=== PATIENT | male | born 1970 | race Two or more races ===

== ENCOUNTER 2020-08-03 05:14 | Inpatient (IN) | payer SELFPAY ==
[2020-08-03] VITALS (15 sets, daily range): BP systolic 106–158; BP diastolic 66–100
[~2020-08-03] VITALS: Ht 177.8 cm; Wt 86.2 kg
[~2020-08-03 05:14] MED LIST: ADVIL200 MG ORAL
[2020-08-03] MEDS ORDERED: Duramorph PF 5mg/10ml amp ONE (06:48)
[2020-08-03] MEDS ORDERED: fentaNYL 100 mcg/2 mL IV ONE (06:59)
[2020-08-03] MEDS ORDERED: Midazolam 2mg/2ml Inj ONE (06:59)
[2020-08-03] MEDS ORDERED: Lidocaine 1% MPF 10mg/ml 5ml ONE (07:06)
[2020-08-03] MEDS ORDERED: ALPRAZolam 0.5mg tab ORAL SCH (07:15)
--- NOTE | 2020-08-03 07:21 | Anethesia Preoperative Eval ---
Anesthesia Pre-op PMH/ROS General Date of Evaluation: Aug 03, 2020 Time of Evaluation: 07:19 Anesthesiologist: Anna ASA Score: ASA 2 Mallampati Score Class I : Soft palate, uvula, fauces, pillars visible Class II: Soft palate, uvula, fauces visible Class III: Soft palate, base of uvula visible Class IV: Only hard plate visible Mallampati Classification: Class II Surgeon: Francisca Diagnosis: R hip DJD Surgical Procedure: R hip arthroplasty Anesthesia History: none Social History: drug use - canabis Family History: no anesthesia problems Allergies: Coded Allergies: ACETAMINOPHEN (Verified Adverse Reaction, Unknown, NAUSEA/VOMITING, 08/02/20) HYDROCODONE (Verified Adverse Reaction, Unknown, NAUSEA/VOMITING, 08/02/20) Medications: see eMAR Patient NPO?: Yes Past Medical History Cardiovascular: Denies: HTN, CAD, DE, valve dz, arrhythmia, other Pulmonary: Denies: asthma, COPD, KIRK, other Gastrointestinal/Genitourinary: Reports: GERD - mild; Denies: CRI, ESRD, other Neurologic/Psychiatric: Reports: depression/anxiety; Denies: dementia, CVA, TIA, other Endocrine: Denies: DM, hypothyroidism, steroids, other HEENT: Denies: cataract (L), cataract (R), glaucoma, [place] (L), [place] (R), other Hematology/Immune: Denies: anemia, DVT, bleeding disorder, other Musculoskeletal/Integumentary: Reports: OA; Denies: RA, DJD, DDD, edema, other PMH Narrative: as above PSxH Narrative: none Anesthesia Pre-op Phys. Exam Physician Exam Last Vital Signs Date Time Temp Pulse Resp B/P (MAP) Pulse Ox O2 Delivery O2 Flow Rate FiO2 08/03/20 06:18 Room Air 08/03/20 06:17 98.0 77 20 138/88 (105) 100 Constitutional: NAD Neurologic: CN 2-12 intact Cardiovascular: RRR, no M/R/G Respiratory: CTA Gastrointestinal: S/NT/ND Airway Exam Mallampati Score: Class II MO: full Neck: flexible ROM: full Teeth: intact Dentures: no upper, no lower Anesthesia Pre-op A/P Labs see chart Studies Pre-op Studies: EKG - NSR Risk Assessment & Plan Assessment: ASA 2 Plan: SAB vs GA Status Change Before Surgery: No Pre-Antibiotics Drug: Ancef 2gr Given Within 1 Hr of Incision: Yes Time Given: 08:50 Gerry Castillo MD Aug 03, 2020 07:21
[2020-08-03] MEDS ORDERED: Bacitracin 50000 Units Vial ONE (07:24)
[2020-08-03] MEDS ORDERED: TRANEXAMIC ACID IVPB ONE (07:30)
--- NOTE | 2020-08-03 07:56 | Pre-Procedure Note/Attestation ---
Pre-Procedure Note/Attestation Complete Prior to Procedure Planned Procedure: right Procedure Narrative: right total hip Indications for Procedure Pre-Operative Diagnosis: right hip arthritis Attestation I attest that I discussed the nature of the procedure; its benefits; risks and complications; and alternatives (and the risks and benefits of such alternatives), prior to the procedure, with the patient (or the patient's legal instruments sales representative). I attest that, if there was a reasonable possibility of needing a blood transfusion, the patient (or the patient's legal instruments sales representative) was given the [facility] standardized written summary, pursuant to the Edison Gilberto Blood Safety Act ([place] Health and Safety Code # 1645, as amended). I attest that I re-evaluated the patient just prior to the surgery and that there has been no change in the patient's H&P, except as documented below: Gregorio Espinosa MD Aug 03, 2020 07:56
--- NOTE | 2020-08-03 07:57 | Brief Operative Note ---
Immediate Post Operative Note Operative Note Pre-op Diagnosis: right hip arthritis Procedure: right toital hip Post-op Diagnosis: right hip artrotis Post-op Diagnosis: same as pre-op Surgeon: ariela Anesthesia: regional Specimen: yes Complications: none Condition: stable Fluids: y Estimated Blood Loss: minimal Drains: none Implant(s) used?: Yes Gregorio Espinosa MD Aug 03, 2020 07:57
[2020-08-03] MEDS ORDERED: Sterile Water Irrig 1000ml IRRIG ONE (09:00)
[2020-08-03] MEDS ORDERED: NS Irrig 1000ml ONE (09:00)
[2020-08-03] MEDS ORDERED: Acetaminophen (Non formulary) 100 ML IV ONE (09:00)
[2020-08-03] MEDS ORDERED: Ketorolac 30mg Inj IV PRN (09:15)
[2020-08-03] MEDS ORDERED: Hydromorphone 0.5mg/0.5ml inj IVP PRN (09:15)
[2020-08-03] MEDS ORDERED: Midazolam 2mg/2ml Inj IVP PRN (09:15)
[2020-08-03] MEDS ORDERED: LR 1000ml 1,000 ML IVLG SCH (09:15)
[2020-08-03] MEDS ORDERED: DiphenhydrAMINE 50mg/ml Inj IVP PRN (09:15)
--- NOTE | 2020-08-03 10:27 | Immediate Post-Op Evaluation ---
Immediate Post-Op Evalulation Immediate Post-Op Evalulation Procedure: R total hip arthroplasty Date of Evaluation: Aug 03, 2020 Time of Evaluation: 10:26 IV Fluids: 1200 Blood Products: none Estimated Blood Loss: 150 Urinary Output: 100 Blood Pressure Systolic: 148 Blood Pressure Diastolic: 76 Pulse Rate: 82 Respiratory Rate: 20 O2 Sat by Pulse Oximetry: 99 Temperature (Fahrenheit): 97.8 Pain Score (1-10): 1 Nausea: No Vomiting: No Complications none Patient Status: reacts, patent, none Gerry Castillo MD Aug 03, 2020 10:27
--- NOTE | 2020-08-03 12:00 | NUR ---
NURSE NOTES: Pt came up to unit via hospital bed, drowsy but alert and in stable condition. Pt A&Ox4; VSS; on 2L NC; and in no apparent distress. Pt denies pain at this time. IV site intact/asymptomatic; abduction pillow in place; F/C patent/draining; and surgical dressing C/D/I. Will continue to monitor.
[2020-08-03] MEDS: D5 1/2NS w/KCl 20mEq 1,000 ML IV SCH (14:15)
--- NOTE | 2020-08-03 14:15 | Diagnostic Imaging Report ---
Indication: Hip pain Technique: Frontal and frog lateral view of the right hip Comparison: None Findings: Images demonstrate severe degenerative changes of the right hip with severe joint space narrowing with [id number] apposition, subchondral sclerosis and cystic change. No acute fracture identified. Symphysis pubis is maintained. Impression: Severe degenerative changes of the right hip.
--- NOTE | 2020-08-03 14:17 | Diagnostic Imaging Report ---
Indication: Hip pain Technique: Portable AP view of the pelvis Comparison: Right hip radiographs earlier the same day Findings: Interval right total hip arthroplasty. No appreciable periprosthetic fracture or additional complication. Note that sensitivity in evaluation for such is limited given obliquity on the projection. There is an indwelling Diaz catheter. Impression: Interval right total hip arthroplasty.
--- NOTE | 2020-08-03 14:23 | Diagnostic Imaging Report ---
Indication: Pain. Postop Technique: XRAY Pelvis 1v Comparison: Earlier the same day Findings: Patient is status post right total hip arthroplasty. Gas within the soft tissues and joint compatible with postoperative acquisition of the radiograph. No periprosthetic fracture appreciated. There is an indwelling Diaz catheter. Impression: Status post right total hip arthroplasty.
--- NOTE | 2020-08-03 17:12 | NUR ---
CASE MANAGEMENT:INITIAL REVIEW 50 YR OLD MALE FROM HOME FOR PLANNED SURGERY CC;RT HIP ARTHRITIS SI;RT TOTAL HIP ARTHROPLASTY 98.0 77 20 158/100 100% ON RA RAPID COVID ~ NEGATIVE RT HIP XRAY ~ Severe degenerative changes of the right hip. RT HIP/PELVIS XRAY ~ Status post right total hip arthroplasty. PELVIS XRAY ~ Interval right total hip arthroplasty IS;XANAX PO ANCEF IV TORADOL IV BENADRYL IV IVF S5W @ 75 ML/HR ADMITTED TO MED SURG FOR POST OP CARE MED SURG STATUS DCP;FROM HOME
[2020-08-03] MEDS: CEFAZOLIN 2 GM/50 ML IV SCH (18:02)
--- NOTE | 2020-08-03 18:33 | Cardiology Progress Note ---
Assessment/Plan Assessment/Plan [id number] Objective Last 24 Hour Vital Signs Date Time Temp Pulse Resp B/P (MAP) Pulse Ox O2 Delivery O2 Flow Rate FiO2 08/03/20 16:00 98.4 67 16 111/69 (83) 99 08/03/20 14:30 98.1 65 16 108/69 (82) 98 08/03/20 13:30 98.4 71 16 106/66 (79) 100 08/03/20 12:30 98.4 77 16 125/77 (93) 99 08/03/20 12:00 98.8 69 16 131/78 (95) 97 08/03/20 11:30 97.8 71 15 133/78 100 Nasal Cannula 3 08/03/20 11:15 70 16 139/76 100 Nasal Cannula 3 08/03/20 11:00 74 17 144/82 100 Nasal Cannula 3 08/03/20 10:45 74 16 150/79 98 Nasal Cannula 3 08/03/20 10:30 74 17 148/88 100 Simple Mask 6 08/03/20 10:27 82 20 99 08/03/20 10:25 71 16 158/100 100 Simple Mask 6 08/03/20 10:19 97.5 76 20 132/76 100 Simple Mask 6 08/03/20 06:18 Room Air 08/03/20 06:17 98.0 77 20 138/88 (105) 100 Intake and Output 08/02/20 08/03/20 19:00 07:00 # Voids 1 Microbiology Date/Time Source Procedure Growth Status 08/03/20 06:00 Nasopharynx SARS-CoV-2 RdRp Gene Assay - Final Complete Alessandro Ulloa MD Aug 03, 2020 18:33
--- NOTE | 2020-08-03 19:30 | Consultation ---
DATE OF CONSULTATION: 08/03/2020 CARDIOLOGY CONSULTATION CONSULTING PHYSICIAN: Alessandro Ulloa MD REFERRING PHYSICIAN: Gregorio Espinosa MD REASON FOR EVALUATION: Postoperative medical care. HISTORY OF PRESENT ILLNESS: This is a middle-aged gentleman who has a history of hip problems and was admitted and underwent total hip replacement by Dr. Gregorio Luna and he asked me to see the patient in postoperative medical care. On detailed questioning, the patient denies any chest pain or shortness of breath. No PND. No orthopnea. No palpitation. No sore throat. PAST MEDICAL HISTORY: Positive for right hip osteoarthritis. PAST SURGICAL HISTORY: No prior surgical issues. FAMILY HISTORY: Mother with arrhythmias, thyroid disease, breast cancer in remission. Father at age 60 due to heatstroke, cancer, myocardial infarction, coronary bypass graft at age 55, and abdominal aortic aneurysm. Siblings - thyroid, depression, prediabetes, gallstones, hypertension, and depression. SOCIAL HISTORY: , 1 child. Nonsmoker. No alcoholic beverages. Positive marijuana use. He is a host. REVIEW OF SYSTEMS: GASTROINTESTINAL: Denies any nausea or vomiting. Does not really have appetite. GENITOURINARY: Denies any burning on urination. PULMONARY: Denies any sore throat, coughing, or wheezing. CONSTITUTIONAL: No chills or fevers. PHYSICAL EXAMINATION: GENERAL: Shows to be middle-aged gentleman, in no respiratory distress. He is lying down approximately 20 degrees head of bed elevation. NECK: Supple. No jugular venous distention. LUNGS: Clear to auscultation, percussion. CARDIAC: S1 is normal. S2 is normal. Regular rate and rhythm. ABDOMEN: Soft, nontender. Positive bowel sounds. EXTREMITIES: No edema. Pneumatic compression stockings in place. LABORATORY VALUES: SARS COVID test was negative. Preoperative urinalysis was unremarkable. Blood sugar was 90 with sodium 140, potassium 3.6, , bicarb 26, BUN of 12.5, and creatinine 0.9, and glucose of 90. His white count 7.6, hemoglobin 15, and platelet count 301. His INR and PTT within normal limits. His preop EKG showed actually sinus bradycardia, normal QRS axis, really no significant ST or T-wave abnormalities. ASSESSMENT AND PLAN: Osteoarthritis of the hip, now status post total knee replacement. This patient was seen in medical consultation. The patient is doing well postoperatively. His vital signs today have been between 108/69 to 131/78, temperature 98.4, heart rates in the 60s to 70s range. He is doing well on postoperative pain medication, antiemetics, pneumatic compression stockings, DVT prophylaxis. Ambulation when allowed by Dr. Luna. Pain Management consultation as becomes necessary. DVT prophylaxis with the use of pneumatic compression stockings and low-molecular weight heparin has been initiated and the patient is having some IV fluids administered. His p.o. intake has been at this time relatively low, but I suspect by tomorrow morning he may gain more appetite. Alessandro Ulloa M.D. DR: JANI JOB#: [id number] CC:
--- NOTE | 2020-08-03 19:30 | NUR ---
NURSE HAND-OFF: Important Events on Shift:Pt came up to unit in stable condition; has no c/o pain; does not have much of an appetite since arriving to unit. Patient Status: Stable Diet: Regular Pending Orders: None Pending Results/Labs:None Pending MD notification: None Latest Vital Signs: Temperature 98.4 , Pulse 67 , B/P 111 /69 , Respiratory Rate 16 , O2 SAT 99 , Room Air. Vital Sign Comment: Stable Latest Weller Fall Score: 55 Fall Risk: High Risk Safety Measures: Call light , Bed Alarm , Side Rails Side Rails x1, Bed position . Fall Precautions: Report given to AMINTA No.
--- NOTE | 2020-08-03 19:32 | NUR ---
NURSE NOTES: Received report & pt from Tanya, NR. Pt in bed, a&ox4, in room air. No s/s of acute distress & no c/o pain at this time. Diaz intact & draining to gravity. Surgical dressing C/D/I with ice pack on & reinforced with AM nurse. Abduction pillow on. IV site intact with IVF running as ordered. Plan of care discussed.
--- NOTE | 2020-08-03 21:30 | NUR ---
NURSE NOTES: Pt had clear emesis 240 ml. Per pt, he feels a lot better now. Left msg to Dr. Ulloa for a PRN order for nausea/vomiting. Will f/u
[2020-08-04] MEDS: CEFAZOLIN 2 GM/50 ML IV SCH (00:01)
--- NOTE | 2020-08-04 01:10 | NUR ---
NURSE NOTES: Pt asleep. In no acute distress. Breathing unlabored.
[2020-08-04] MEDS: D5 1/2NS w/KCl 20mEq 1,000 ML IV SCH (02:03)
[2020-08-04 04:36] VITALS: BP 118/66
[2020-08-04 06:48] LABS: BASOPHILS % (AUTO) 0.3 % (0.0-2.0); EOSINOPHILS % (AUTO) 0.3 % (0.0-3.0); HEMATOCRIT 36.9 % (42.0-52.0); HEMOGLOBIN 12.5 G/DL (14.2-18.0); LYMPHOCYTES % (AUTO) 24.9 % (20.0-45.0); MEAN CORPUSCULAR VOLUME 95 FL (80-99); MONOCYTES % (AUTO) 9.8 % (1.0-10.0); NEUTROPHILS % (AUTO) 64.7 % (45.0-75.0); PLATELET COUNT 205 K/UL (150-450); RED BLOOD COUNT 3.89 M/UL (4.70-6.10); RED CELL DISTRIBUTION WIDTH 12.4 % (11.6-14.8); WHITE BLOOD COUNT 8.8 K/UL (4.8-10.8)
--- NOTE | 2020-08-04 06:54 | NUR ---
NURSE HAND-OFF: Important Events on Shift: clear emesis 240 ml; no pain Patient Status: stable Diet: Regular Pending Orders: none Pending Results/Labs:none Pending MD notification:none Latest Vital Signs: Temperature 98.6 , Pulse 73 , B/P 118 /66 , Respiratory Rate 17 , O2 SAT 96 , Room Air, O2 Flow Rate 2.0 . Vital Sign Comment: none Latest Weller Fall Score: 55 Fall Risk: High Risk Safety Measures: Call light Within Reach, Bed Alarm , Side Rails Side Rails x2, Bed position Low and Locked. Fall Precautions: Patient Fall Education Report given to . Addendum: 08/04/20 at 0723 by Marybel Padilla RN Report given to AMINTA Nova.
[2020-08-04 07:05] LABS: ANION GAP 7 mmol/L (5-15); BLOOD UREA NITROGEN 16 mg/dL (7-18); CALCIUM 7.8 MG/DL (8.5-10.1); CARBON DIOXIDE 28 MMOL/L (21-32); CHLORIDE 105 MMOL/L (98-107); POTASSIUM 3.8 MMOL/L (3.5-5.1); SODIUM 140 MMOL/L (136-145)
--- NOTE | 2020-08-04 07:23 | NUR ---
NURSE NOTES: Patient is in bed asleep. Stable. Breathing is even and unlabored. No visible signs of distress noted at this time. IVF running as ordered. All safety measures provided. Patient is in bed in locked and lowest position with call light within reach. Will continue to monitor.
[2020-08-04 08:00] VITALS: BP 118/70
--- NOTE | 2020-08-04 08:07 | 48 Hour Post Anesthesia Eval ---
Post Anesthesia Evaluation Procedure: R total hip arthroplasty Date of Evaluation: Aug 04, 2020 Time of Evaluation: 08:05 Blood Pressure Systolic: 118 0: 76 Pulse Rate: 68 Respiratory Rate: 18 Temperature (Fahrenheit): 97.6 O2 Sat by Pulse Oximetry: 98 Airway: patent Nausea: No Vomiting: No Pain Intensity: 3 Hydration Status: adequate Cardiopulmonary Status: stable Mental Status/LOC: patient returned to baseline Follow-up Care/Observations: n/a Post-Anesthesia Complications: none Follow-up care needed: N/A Gerry Castillo MD Aug 04, 2020 08:07
[2020-08-04] MEDS: Morphine Sulfate 2mg/ml Inj(IV/IM USE ONLY) IVP PRN ×4 (09:10→22:39)
[2020-08-04] MEDS: Enoxaparin 40mg Inj SUBQ SCH (09:14)
--- NOTE | 2020-08-04 09:55 | NUR ---
PT EVALUATION NOTE Patient seen for initial evaluation. Patient presents with generalized weakness and impaired functional mobility s/p R TORY. Patient instructed in THR precautions. Patient required mod assist for bed mobility and min assist for transfers with FWW. Patient able to take several small sideways steps with FWW and min assist. Gait training deferred due to c/o nausea. Patient will benefit from skilled inpatient PT intervention to increase RLE strength and postural stability for improved balance and functional mobility, and to insure compliance with THR precautions. Patient lives alone however states that he will have assistance at home. Recommend discharge home with home PT and assistance vs short term SNF for rehab depending on patient's progress. Patient has FWW and bedside commode. Addendum: 08/04/20 at 1259 by KEVIN FRYE PT Amended: Links added.
[2020-08-04 11:52] VITALS: BP 140/74
--- NOTE | 2020-08-04 13:47 | NUR ---
CASE MANAGEMENT:REVIEW SI;POD #1 RT HIP ARTHROPLASTY 99.2 77 18 140/74 93% ON RA BG 109 CA 7.8 IS;LOVENOX SUBQ QD CEFAZOLIN IV Q8 MORPHINE IV Q2 PRN IVF D5W @ 75 ML/HR MED SURG STATUS DCP;FROM HOME
--- NOTE | 2020-08-04 15:30 | Operative Note - Dictated ---
DATE OF OPERATION: 08/03/2020 PREOPERATIVE DIAGNOSIS: Right hip end-stage osteoarthritis. POSTOPERATIVE DIAGNOSIS: Right hip end-stage osteoarthritis. PROCEDURE: Right total hip replacement with a Sohan #3 lateral offset stem, a +7 mm ceramic head, a 56 mm cup with a vitamin E liner. SURGEON: Gregorio Espinosa M.D. MEDICAL CENTER DIRECTOR: Gerry Castillo M.D. PREOPERATIVE NOTE: This is a pleasant gentleman who has been having issues with his hip associated with increasing pain. He has end-stage changes on his x-rays. I explained to him the surgery and risks being infection, bleeding, anesthetic risks, nerve or vessel damage, failure of the surgery, DVT, PE, and morbidity and mortality from the above, not including the above. The patient agreed and consents were obtained. OR NOTE: Under the benefit of endotracheal intubation, general anesthetic, and spinal anesthetic, the patient was given tranexamic acid. The patient was given appropriate embolism cuffs in order to prevent DVT. The patient was placed in the lateral position. At this point, the patient was given 2 g of Ancef. We then did a posterolateral incision after prepping and draping the hip. I incised through subcu tissue down to TFL. The incision was approximately 4-5 inches. I then proceeded to the short external rotators, identifying the sciatic nerve pre and post approach, it was intact. I then proceeded to remove the capsule. I dislocated the hip. There were indeed end-stage changes within the labrum. I used a saw to saw the hip head. I then proceeded to starting the acetabulum. I started with the 44, progressing up to 55. I accepted a 56 cup. I bent 56 cup into proper lateral inclination, proper anteversion. I then placed in a liner. I then moved onto the femoral side, reaming down the femur starting with the 0, 1, 2, and 3, accepting a 3 lateral offset stem after sizing multiple times to adjust the leg lengths and stability. . I accepted a 3 lateral offset with a +7 head leading to perfect leg lengths, appeared to be equal on the table and also on x-ray. I irrigated the wound copiously. I closed the short external rotator remnants and TFL with 1 Vicryl, subcu tissue with 2-0 Vicryl, skin with amelia. The patient went to recovery room in stable condition, neurovascularly intact. No complications. Bal Marysol Espinosa DR: Fartun JOB#: [id number] CC: CIRILO
--- NOTE | 2020-08-04 15:49 | NUR ---
NURSE NOTES: Patient tolerated PO fluids, IVF d/c as ordered.
[2020-08-04 16:00] VITALS: BP 155/88
[2020-08-04] MEDS ORDERED: Tubing IV Secondary IV ONE (16:35)
--- NOTE | 2020-08-04 18:30 | Cardiology Progress Note ---
Assessment/Plan Assessment/Plan Osteoarthritis of the hip, now status post total knee replacement per rn had bleeding earlier today he would nto allow me to turn the light on for me to check hsi wound follow cbc hgb sveta ok now dvt ppx with lmwh Subjective Cardiovascular: Denies: chest pain, lightheadedness, palpitations Respiratory: Denies: shortness of breath Gastrointestinal/Abdominal: Denies: abdominal pain Genitourinary: Denies: burning Objective Last 24 Hour Vital Signs Date Time Temp Pulse Resp B/P (MAP) Pulse Ox O2 Delivery O2 Flow Rate FiO2 08/04/20 16:00 99.0 70 19 155/88 (110) 97 08/04/20 11:52 99.2 74 18 140/74 (96) 97 08/04/20 09:00 Room Air 08/04/20 08:07 68 18 98 08/04/20 08:00 98.7 67 16 118/70 (86) 98 08/04/20 04:36 98.6 73 17 118/66 (83) 96 08/03/20 23:31 99.0 77 16 117/67 (84) 93 08/03/20 20:41 Room Air 08/03/20 20:00 98.0 66 16 114/70 (85) 98 General Appearance: other - would not allow me to turn on the light wanter to be left alone to sleep more Respiratory/Chest: lungs clear - ant Abdomen: non tender, soft Extremities: no swelling Intake and Output 08/03/20 08/04/20 19:00 07:00 Intake Total 340 ml 1480 ml Output Total 350 ml 590 ml Balance -10 ml 890 ml Intake Oral 240 ml 580 ml IV Total 100 ml 900 ml Output Urine Total 300 ml 350 ml Emesis 240 ml Estimated Blood Loss 50 ml Laboratory Tests Test 08/04/20 05:05 White Blood Count 8.8 K/UL (4.8-10.8) Red Blood Count 3.89 M/UL (4.70-6.10) L Hemoglobin 12.5 G/DL (14.2-18.0) L Hematocrit 36.9 % (42.0-52.0) L Mean Corpuscular Volume 95 FL (80-99) Mean Corpuscular Hemoglobin 32.2 PG (27.0-31.0) H Mean Corpuscular Hemoglobin Concent 33.9 G/DL (32.0-36.0) Red Cell Distribution Width 12.4 % (11.6-14.8) Platelet Count 205 K/UL (150-450) Mean Platelet Volume 6.4 FL (6.5-10.1) L Neutrophils (%) (Auto) 64.7 % (45.0-75.0) Lymphocytes (%) (Auto) 24.9 % (20.0-45.0) Monocytes (%) (Auto) 9.8 % (1.0-10.0) Eosinophils (%) (Auto) 0.3 % (0.0-3.0) Basophils (%) (Auto) 0.3 % (0.0-2.0) Prothrombin Time 11.4 SEC (9.30-11.50) Prothromb Time International Ratio 1.0 (0.9-1.1) Activated Partial Thromboplast Time 26 SEC (23-33) Sodium Level 140 MMOL/L (136-145) Potassium Level 3.8 MMOL/L (3.5-5.1) Chloride Level 105 MMOL/L (98-107) Carbon Dioxide Level 28 MMOL/L (21-32) Anion Gap 7 mmol/L (5-15) Blood Urea Nitrogen 16 mg/dL (7-18) Creatinine 1.0 MG/DL (0.55-1.30) Estimat Glomerular Filtration Rate > 60 mL/min (>60) Glucose Level 109 MG/DL (74-106) H Calcium Level 7.8 MG/DL (8.5-10.1) L Microbiology Date/Time Source Procedure Growth Status 08/03/20 06:00 Nasopharynx SARS-CoV-2 RdRp Gene Assay - Final Complete Alessandro Ulloa MD Aug 04, 2020 18:30
--- NOTE | 2020-08-04 19:15 | NUR ---
NURSE HAND-OFF: Important Events on Shift:pain management, reposition Patient Status: stable Diet: regular Pending Orders: n/a Pending Results/Labs:n/a Pending MD notification:n/a Latest Vital Signs: Temperature 99.0 , Pulse 70 , B/P 155 /88 , Respiratory Rate 19 , O2 SAT 97 , Room Air, O2 Flow Rate 2.0 . Vital Sign Comment: n/a Latest Weller Fall Score: 60 Fall Risk: High Risk Safety Measures: Call light Within Reach, Bed Alarm , Side Rails Side Rails x2, Bed position Low and Locked. Fall Precautions: Patient Fall Education Report given to Marybel LEMOS.
--- NOTE | 2020-08-04 19:30 | NUR ---
NURSE NOTES: Received report & pt from AMINTA Nova. Pt in bed, a&ox4, in room air. No s/s of acute distress & no c/o pain at this time. Diaz intact & draining to gravity. Surgical dressing C/D/I with ice pack on. Abduction pillow on. IV site intact & S/L'd. Plan of care discussed.
[2020-08-04 20:00] VITALS: BP 139/80
--- NOTE | 2020-08-04 23:54 | NUR ---
NURSE NOTES: In no acute distress. Ice chips provided per pt's request.
[2020-08-05 00:10] VITALS: BP 154/89
[2020-08-05] MEDS ORDERED: Zolpidem 5mg tab ORAL PRN (04:00)
[2020-08-05 04:22] VITALS: BP 156/88
[2020-08-05] MEDS: Morphine Sulfate 2mg/ml Inj(IV/IM USE ONLY) IVP PRN ×2 (04:41→12:10)
--- NOTE | 2020-08-05 06:26 | NUR ---
NURSE HAND-OFF: Important Events on Shift:pain management, new order for sleeping pill Patient Status: stable Diet: regular Pending Orders: none Pending Results/Labs:none Pending MD notification:none Latest Vital Signs: Temperature 98.7 , Pulse 68 , B/P 156 /88 , Respiratory Rate 18 , O2 SAT 95 , Room Air, O2 Flow Rate 2.0 . Vital Sign Comment: none Latest Weller Fall Score: 60 Fall Risk: High Risk Safety Measures: Call light Within Reach, Bed Alarm , Side Rails Side Rails x2, Bed position Low and Locked. Fall Precautions: Patient Fall Education Report given to . Addendum: 08/05/20 at 0710 by Marybel Padilla RN Report given to AMINTA Horne.
[2020-08-05 06:55] LABS: BASOPHILS % (AUTO) 0.6 % (0.0-2.0); EOSINOPHILS % (AUTO) 0.1 % (0.0-3.0); HEMATOCRIT 37.5 % (42.0-52.0); HEMOGLOBIN 13.3 G/DL (14.2-18.0); MEAN CORPUSCULAR VOLUME 93 FL (80-99); MONOCYTES % (AUTO) 10.6 % (1.0-10.0); NEUTROPHILS % (AUTO) 71.7 % (45.0-75.0); PLATELET COUNT 215 K/UL (150-450); RED BLOOD COUNT 4.04 M/UL (4.70-6.10); RED CELL DISTRIBUTION WIDTH 11.6 % (11.6-14.8)
--- NOTE | 2020-08-05 07:10 | NUR ---
NURSE NOTES: Handoff received from Marybel LEMOS. Patient is awake and alert, no signs of distress noted, eating breakfast. Right hip visualized, dressing is clean and dry. Right hand IV intact and patent. No reports of pain or discomfort. bed is low and locked, side rails up x2, call light is within reach.
[2020-08-05 07:24] LABS: ANION GAP 9 mmol/L (5-15); BLOOD UREA NITROGEN 9 mg/dL (7-18); CALCIUM 8.1 MG/DL (8.5-10.1); CARBON DIOXIDE 26 MMOL/L (21-32); CHLORIDE 101 MMOL/L (98-107); POTASSIUM 3.7 MMOL/L (3.5-5.1); SODIUM 136 MMOL/L (136-145)
[2020-08-05 08:00] VITALS: BP 143/88
--- NOTE | 2020-08-05 08:12 | General Progress Note ---
Progress Note Progress Note doing well Xrays good Neurovascular intact Leg length equal tight flexors and adductors as was 2 cm short now equal incision clear plan iv toradol advise strtech flexors and adductors reassured client physio today reasses Gregorio Hernandez MD Aug 05, 2020 08:12
[2020-08-05] MEDS ORDERED: Ketorolac 30mg Inj IV SCH (08:15)
[2020-08-05] MEDS: Enoxaparin 40mg Inj SUBQ SCH (08:16)
[2020-08-05 12:00] VITALS: BP 166/91
--- NOTE | 2020-08-05 12:23 | NUR ---
NURSE NOTES: Diaz catheter d/c per Md order.
[2020-08-05 16:00] VITALS: BP 139/93
--- NOTE | 2020-08-05 16:32 | NUR ---
CASE MANAGEMENT: REVIEW 08/05/2020 SI:RIGHT HIP OA. VS: T 98.1 HR 95 RR 18 B/P 166/91 SATS 97% ON RA LABS: WBC 11 GLU 121 CA 8.1 IS:LOVENOX SUBQ QD MED/SURG PLAN OF CARE: CONTINUE PT
--- NOTE | 2020-08-05 16:40 | NUR ---
CASE MANAGEMENT: NOTE SURGICAL CLEARANCE REQUESTED
--- NOTE | 2020-08-05 18:05 | Cardiology Progress Note ---
Assessment/Plan Assessment/Plan Osteoarthritis of the hip, now status post total knee replacement in much better spirits todayu no pvr on bladder scan dvt ppx with [facility] looks good hope ehll iell be able to go hometomorrow Subjective Cardiovascular: Denies: chest pain, lightheadedness, palpitations Gastrointestinal/Abdominal: Denies: abdominal pain Genitourinary: Denies: burning Subjective sat up for 1 hour walkied inhall ate , but nto been able to urinte ye post engel removal and no bm yet but has had flatus Objective Last 24 Hour Vital Signs Date Time Temp Pulse Resp B/P (MAP) Pulse Ox O2 Delivery O2 Flow Rate FiO2 08/05/20 12:40 98.7 08/05/20 12:00 98.1 95 18 166/91 (116) 97 08/05/20 09:37 98.7 08/05/20 09:00 Room Air 08/05/20 08:00 99.0 82 20 143/88 (106) 96 08/05/20 04:22 98.7 68 18 156/88 (110) 95 08/05/20 00:10 99.4 69 18 154/89 (110) 97 08/04/20 22:19 Room Air 08/04/20 20:00 99.3 84 18 139/80 (99) 95 General Appearance: no apparent distress, alert Neck: supple Cardiovascular: normal rate Respiratory/Chest: lungs clear Abdomen: normal bowel sounds, non tender, soft Extremities: no swelling Intake and Output 08/04/20 08/05/20 19:00 07:00 Intake Total 720 ml Output Total 900 ml 1300 ml Balance -900 ml -580 ml Intake Oral 720 ml Output Urine Total 900 ml 1300 ml Laboratory Tests Test 08/05/20 04:55 White Blood Count 11.0 K/UL (4.8-10.8) H Red Blood Count 4.04 M/UL (4.70-6.10) L Hemoglobin 13.3 G/DL (14.2-18.0) L Hematocrit 37.5 % (42.0-52.0) L Mean Corpuscular Volume 93 FL (80-99) Mean Corpuscular Hemoglobin 32.9 PG (27.0-31.0) H Mean Corpuscular Hemoglobin Concent 35.5 G/DL (32.0-36.0) Red Cell Distribution Width 11.6 % (11.6-14.8) Platelet Count 215 K/UL (150-450) Mean Platelet Volume 6.7 FL (6.5-10.1) Neutrophils (%) (Auto) 71.7 % (45.0-75.0) Lymphocytes (%) (Auto) 17.0 % (20.0-45.0) L Monocytes (%) (Auto) 10.6 % (1.0-10.0) H Eosinophils (%) (Auto) 0.1 % (0.0-3.0) Basophils (%) (Auto) 0.6 % (0.0-2.0) Sodium Level 136 MMOL/L (136-145) Potassium Level 3.7 MMOL/L (3.5-5.1) Chloride Level 101 MMOL/L (98-107) Carbon Dioxide Level 26 MMOL/L (21-32) Anion Gap 9 mmol/L (5-15) Blood Urea Nitrogen 9 mg/dL (7-18) Creatinine 1.0 MG/DL (0.55-1.30) Estimat Glomerular Filtration Rate > 60 mL/min (>60) Glucose Level 121 MG/DL (74-106) H Calcium Level 8.1 MG/DL (8.5-10.1) L Microbiology Date/Time Source Procedure Growth Status 08/03/20 06:35 Nasal Nares MRSA Culture - Final NO METHICILLIN RESISTANT STAPH AUREUS... Complete 08/03/20 06:00 Nasopharynx SARS-CoV-2 RdRp Gene Assay - Final Complete Alessandro Ulloa MD Aug 05, 2020 18:05
--- NOTE | 2020-08-05 19:20 | NUR ---
NURSE HAND-OFF: Important Events on Shift:[voiding after dc engel catheter] Patient Status: stable Diet: regular Pending Orders: Pending Results/Labs: Pending MD notification: Latest Vital Signs: Temperature 99.0 , Pulse 85 , B/P 139 /93 , Respiratory Rate 18 , O2 SAT 99 , Room Air, O2 Flow Rate 2.0 . Vital Sign Comment: stable Latest Weller Fall Score: 60 Fall Risk: High Risk Safety Measures: Call light Within Reach, Bed Alarm , Side Rails Side Rails x2, Bed position Low and Locked. Fall Precautions: Patient Fall Education Report given to
--- NOTE | 2020-08-05 19:48 | NUR ---
NURSE NOTES: Received report from Ozize LEMOS. Patient seen in bed, sitting and in no apparent distress. Denies any pain as of the moment.
[2020-08-06] VITALS (7 sets, daily range): BP systolic 125–157; BP diastolic 68–91
[2020-08-06] MEDS: Morphine Sulfate 2mg/ml Inj(IV/IM USE ONLY) IVP PRN (00:52)
--- NOTE | 2020-08-06 06:30 | NUR ---
NURSE HAND-OFF: Important Events on Shift: Pain management throughout the night. Patient mentions that he has a raised toilet seat, a bedside commode, at home. Patient was up and about last night, he was able to void okay. Encouraged more fluid intake Patient Status: stable Diet: reg Pending Orders: [] Pending Results/Labs:[] Pending MD notification:[] Latest Vital Signs: Temperature 98.4 , Pulse 79 , B/P 134 /91 , Respiratory Rate 18 , O2 SAT 97 , Room Air, O2 Flow Rate 2.0 . Vital Sign Comment: [] Latest Weller Fall Score: 60 Fall Risk: High Risk Safety Measures: Call light Within Reach, Bed Alarm , Side Rails Side Rails x2, Bed position Low and Locked. Fall Precautions: Patient Fall Education Report given to Alvarez LEMOS .
[2020-08-06 06:31] LABS: BASOPHILS % (AUTO) 0.7 % (0.0-2.0); EOSINOPHILS % (AUTO) 0.4 % (0.0-3.0); HEMOGLOBIN 12.7 G/DL (14.2-18.0); LYMPHOCYTES % (AUTO) 30.9 % (20.0-45.0); MEAN CORPUSCULAR VOLUME 92 FL (80-99); MONOCYTES % (AUTO) 11.7 % (1.0-10.0); NEUTROPHILS % (AUTO) 56.3 % (45.0-75.0); PLATELET COUNT 221 K/UL (150-450); RED BLOOD COUNT 3.91 M/UL (4.70-6.10); WHITE BLOOD COUNT 8.3 K/UL (4.8-10.8)
[2020-08-06 06:56] LABS: ANION GAP 8 mmol/L (5-15); BLOOD UREA NITROGEN 15 mg/dL (7-18); CALCIUM 8.1 MG/DL (8.5-10.1); CARBON DIOXIDE 27 MMOL/L (21-32); CHLORIDE 100 MMOL/L (98-107); POTASSIUM 3.7 MMOL/L (3.5-5.1); SODIUM 135 MMOL/L (136-145)
--- NOTE | 2020-08-06 07:45 | NUR ---
NURSE NOTES: Received report from AMINTA Hanks. Pt awake in bed in RA, alert and oriented. No acute distress noted. Denied any pain at this time. Surgical wound dressing C/D/I. IV intact and patent. Bed in low position and locked. Call light within reach. Will continue to monitor.
[2020-08-06] MEDS: Enoxaparin 40mg Inj SUBQ SCH (09:21)
--- NOTE | 2020-08-06 12:42 | Cardiology Progress Note ---
Assessment/Plan Assessment/Plan Osteoarthritis of the hip, now status post total knee replacement in much better spirits todayu dvt ppx with [facility] lab cecilia campos urinated last ntie adn to day home tomorrow Subjective Cardiovascular: Denies: chest pain, lightheadedness, palpitations Respiratory: Denies: shortness of breath Gastrointestinal/Abdominal: Denies: abdominal pain Genitourinary: Denies: burning Subjective walked inhall Objective Last 24 Hour Vital Signs Date Time Temp Pulse Resp B/P (MAP) Pulse Ox O2 Delivery O2 Flow Rate FiO2 08/06/20 09:00 Room Air 08/06/20 08:00 98.3 86 18 157/81 (106) 95 08/06/20 04:00 98.4 79 18 134/91 (105) 97 08/06/20 01:22 98.2 08/06/20 00:00 98.2 83 18 138/88 (105) 99 08/05/20 21:00 Room Air 08/05/20 16:00 99.0 85 18 139/93 (108) 99 General Appearance: no apparent distress, alert Neck: supple Cardiovascular: normal rate Respiratory/Chest: lungs clear Abdomen: normal bowel sounds, non tender, soft Extremities: no swelling Intake and Output 08/05/20 08/06/20 18:59 06:59 Intake Total 500 ml 750 ml Output Total 600 ml 600 ml Balance -100 ml 150 ml Intake Oral 500 ml 750 ml Output Urine Total 600 ml 600 ml # Voids 4 Laboratory Tests Test 08/06/20 05:00 White Blood Count 8.3 K/UL (4.8-10.8) Red Blood Count 3.91 M/UL (4.70-6.10) L Hemoglobin 12.7 G/DL (14.2-18.0) L Hematocrit 36.0 % (42.0-52.0) L Mean Corpuscular Volume 92 FL (80-99) Mean Corpuscular Hemoglobin 32.4 PG (27.0-31.0) H Mean Corpuscular Hemoglobin Concent 35.2 G/DL (32.0-36.0) Red Cell Distribution Width 12.0 % (11.6-14.8) Platelet Count 221 K/UL (150-450) Mean Platelet Volume 7.0 FL (6.5-10.1) Neutrophils (%) (Auto) 56.3 % (45.0-75.0) Lymphocytes (%) (Auto) 30.9 % (20.0-45.0) Monocytes (%) (Auto) 11.7 % (1.0-10.0) H Eosinophils (%) (Auto) 0.4 % (0.0-3.0) Basophils (%) (Auto) 0.7 % (0.0-2.0) Sodium Level 135 MMOL/L (136-145) L Potassium Level 3.7 MMOL/L (3.5-5.1) Chloride Level 100 MMOL/L (98-107) Carbon Dioxide Level 27 MMOL/L (21-32) Anion Gap 8 mmol/L (5-15) Blood Urea Nitrogen 15 mg/dL (7-18) Creatinine 1.0 MG/DL (0.55-1.30) Estimat Glomerular Filtration Rate > 60 mL/min (>60) Glucose Level 109 MG/DL (74-106) H Calcium Level 8.1 MG/DL (8.5-10.1) Alessandro García MD Aug 06, 2020 12:42
--- NOTE | 2020-08-06 14:30 | NUR ---
NURSE NOTES: Pain med was given before physical therapy.
--- NOTE | 2020-08-06 15:50 | NUR ---
HAND-OFF: Report given to AMINTA Escobar.
--- NOTE | 2020-08-06 17:36 | NUR ---
NURSE NOTES: Received telephone order from Dr. Luna for toradol 30mg IV x1 dose now and one dose tomorrow morning at 0800. Orders read back and entered.
[2020-08-06] MEDS ORDERED: Ketorolac 30mg Inj IV SCH (17:45)
--- NOTE | 2020-08-06 19:19 | NUR ---
NURSE HAND-OFF: Important Events on Shift: Pain management, PT Patient Status: stable Diet: Regular Pending Orders: N/A Pending Results/Labs: N/A Pending MD notification: N/A Latest Vital Signs: Temperature 99.4 , Pulse 82 , B/P 140 /68 , Respiratory Rate 16 , O2 SAT 97 , Room Air, O2 Flow Rate 2.0 . Vital Sign Comment: VS stable Latest Weller Fall Score: 60 Fall Risk: High Risk Safety Measures: Call light Within Reach, Bed Alarm , Side Rails Side Rails x2, Bed position Low and Locked. Fall Precautions: Patient Fall Education Report given to Kian LEMOS.
--- NOTE | 2020-08-06 19:31 | NUR ---
NURSE NOTES: received pt and report from AMINTA Snell. pt alert and oriented x 4 with no acute s/s of distress and no co pain. pt surgical dressing clean dry and intact with no drainage apparent. Plan of care discussed.
--- NOTE | 2020-08-06 22:35 | NUR ---
NURSE NOTES: observed small abrasion on pts right lateral lower back area related to pt scratching the area. he stated he thought there was some leftover tape there and he was picking at it as if to remove the tape. area revealed skin abrasion and redness. band aid applied to area and educated the pt about avoiding scratching the area. pt now denies touching the area since band aid placement and states that he no longer feels anything uncomfortable in the area.
--- NOTE | 2020-08-06 23:46 | NUR ---
NURSE NOTES: pt vital signs stable. pt no longer complaining of abrasion on right lateral lower back. no s/s of acute distress and no co pain at the moment.
[2020-08-07 03:54] VITALS: BP 146/85
--- NOTE | 2020-08-07 03:55 | NUR ---
NURSE NOTES: pt presents with no acute s/s of distress and no co pain. vitals are stable. pt alert and oriented during pt interaction.
[2020-08-07 06:46] LABS: BASOPHILS % (AUTO) 1.4 % (0.0-2.0); EOSINOPHILS % (AUTO) 1.3 % (0.0-3.0); HEMATOCRIT 35.2 % (42.0-52.0); HEMOGLOBIN 12.3 G/DL (14.2-18.0); LYMPHOCYTES % (AUTO) 32.8 % (20.0-45.0); MEAN CORPUSCULAR VOLUME 93 FL (80-99); MONOCYTES % (AUTO) 11.2 % (1.0-10.0); NEUTROPHILS % (AUTO) 53.3 % (45.0-75.0); PLATELET COUNT 230 K/UL (150-450); RED BLOOD COUNT 3.78 M/UL (4.70-6.10); WHITE BLOOD COUNT 6.5 K/UL (4.8-10.8)
--- NOTE | 2020-08-07 07:21 | NUR ---
NURSE HAND-OFF: Important Events on Shift:NA Patient Status: stable Diet: regular Pending Orders: NA Pending Results/Labs:NA Pending MD notification:NA Latest Vital Signs: Temperature 98.4 , Pulse 68 , B/P 146 /85 , Respiratory Rate 16 , O2 SAT 95 , Room Air, O2 Flow Rate 2.0 . Vital Sign Comment: stable through the shift Latest Weller Fall Score: 60 Fall Risk: High Risk Safety Measures: Call light Within Reach, Bed Alarm , Side Rails Side Rails x2, Bed position Low and Locked. Fall Precautions: Patient Fall Education Report given to AMINTA Voss.
--- NOTE | 2020-08-07 07:30 | NUR ---
NURSE NOTES: Received report from Kian LEMOS. Patient is awake and oriented, in no apparent distress, reporting mild pain in right hip with movement. IV intact. Surgical site dressing clean, dry, intact. Patient updated on plan of care for the day. Side rails upx2, bed low and locked, call light within reach.
[2020-08-07 08:00] VITALS: BP 125/81
[2020-08-07] MEDS ORDERED: Ketorolac 30mg Inj IV SCH (08:00)
[2020-08-07] MEDS: Enoxaparin 40mg Inj SUBQ SCH (08:43)
[2020-08-07 12:00] VITALS: BP 149/94
--- NOTE | 2020-08-07 14:07 | NUR ---
Hand-off: Report given to Sachin LEMOS.
--- NOTE | 2020-08-07 14:10 | NUR ---
NURSE NOTES: Received report from Shanika LEMOS, rounds made, pt awake , denies any pain or discomfort , pt inquiring about the possibility of going home, will follow up with Cyndy CANO hip dressing changed by Shanika LEMOS , with 4x4 and Tegaderm, will continue with plan of care
--- NOTE | 2020-08-07 14:57 | NUR ---
CASE MANAGEMENT:REVIEW SI;POD #4 RT HIP ARTHROPLASTY 99.0 85 16 149/94 95% ON RA IS;TORADOL IV LOVENOX SUBQ QD MED SURG STATUS DCP;FROM HOME PLAN; DC PLANNING
--- NOTE | 2020-08-07 15:50 | NUR ---
NURSE NOTES: Spoke to regarding discharge and Cleared to discharge today. Order noted and carried out. will [facility] and order Xarelto. Notified patient and instructed to warp picker medication at preferred pharmacy and verbalized understanding. Addendum: 08/07/20 at 1814 by ANILA GARCIA RN Incorrect timing of note. Correct time 17:50.
[2020-08-07 16:00] VITALS: BP 139/91
--- NOTE | 2020-08-07 16:49 | NUR ---
PT Note Patient declined PT treatment this PM. "I'm going to save my energy for when I go home later."
[2020-08-07] MEDS ORDERED: XARELTO10 MG ORAL (18:06)
--- NOTE | 2020-08-07 19:02 | NUR ---
NURSE NOTES: Spoke to regarding patient. Per :1. Patient cleared to discharge surgical standpoint., 2. Follow up with Dr. Espinosa on at Dr. Espinosa's clinic. Order noted and carried out.
--- NOTE | 2020-08-07 19:18 | NUR ---
NURSE HAND-OFF: Important Events on Shift: pt to be discharged , D/c papers printed Patient Status: stable Diet: Regular Pending Orders: Pending Results/Labs: Pending MD notification: Latest Vital Signs: Temperature 98.3 , Pulse 81 , B/P 139 /91 , Respiratory Rate 17 , O2 SAT 98 , Room Air, O2 Flow Rate 2.0 . Vital Sign Comment: Latest Weller Fall Score: 60 Fall Risk: High Risk Safety Measures: Call light Within Reach, Bed Alarm , Side Rails Side Rails x2, Bed position Low and Locked. Fall Precautions: Patient Fall Education Report given to Kian LEMOS.
--- NOTE | 2020-08-07 21:20 | NUR ---
NURSE NOTES: Pt belongings gathered and carried in suitcase. pt signed for belongings. latest vital signs stable. pt was alert and oriented x 4 with no acute distress and no co pain. pt accompanied by a male showroom sales assistant. pt given discharge packet and provided discharge instructions and education. pt verbalized understanding. pt left unit on a wheelchair accompanied by me and his male showroom sales assistant. downstairs in the lobby showroom sales assistant assisted pt into white jeep. pt was driven away from hospital by showroom sales assistant.
--- NOTE | 2020-08-08 08:57 | Discharge Summary ---
Discharge Summary Hospital Course Date of Admission Aug 03, 2020 at 05:14 Date of Discharge Aug 07, 2020 at 21:20 Admitting Diagnosis Right hip end-stage osteoarthritis Reason for Hospitalization: elective surgery HPI Lavon Hinkle is a 50 year old male who was admitted on Aug 03, 2020 at 05:14 for Right hip end stage osteoarthritis . Patient was admitted for elective surgery Consultations Dr Ulloa/IM, cardio Procedures s/p 08/03/[address] Espinosa Right total hip replacement Hospital Course status post surgery course of recovery uneventful initially IV fluids s/p perioperative antibiotic neurovascular status closely monitored, remained stable incision clean, dry and intact pain management was addressed, pain was controlled remained hemodynamically stable ambulated with PT fall precautions maintained; safe for ambulation DVT prophylaxis with low molecular weight heparin provided use of incentive spirometry was encouraged while in the bed tolerated diet , IV fluids discontinued GI prophylaxis provided antiemetics were on board as needed voided freely bowel regimen instituted patient was stable for discharge discharge instructions provided follow up with surgeon in the office as instructed FINAL DIAGNOSES Right hip end-stage osteoarthritis. s/p Right total hip replacement Discharge Medications Continued Medications: Rivaroxaban (Xarelto*) 10 Mg Tablet 10 MG ORAL DAILY for Anticoagulant, #30 TAB 0 Refills Discontinued Medications: Ibuprofen* (Advil*) 200 Mg Tablet 200 MG ORAL Q6H for PAIN, TAB Discharge Condition Upon Discharge: stable Discharge Vital Signs Last Vital Signs Date Time Temp Pulse Resp B/P (MAP) Pulse Ox O2 Delivery O2 Flow Rate FiO2 08/07/20 16:00 98.3 81 17 139/91 (107) 98 08/07/20 09:00 Room Air 08/03/20 12:00 2.0 Discharge Disposition Patient was discharged to Home () Discharge Instructions Discharge Instructions Special Instructions I have been assigned to complete a D/C Summary on this account. I was not involved in the patient management Frances Smith NP Aug 08, 2020 08:57
== END 2020-08-07 21:20 | disposition home or self-care (01) | DRG 470 ==
LOC: SDSOVERFLO 05:14 → EDSTATUS 07:30 → 3E 11:56
PROC: 0SR903Z Replacement of Right Hip Joint with Ceramic Synthetic Substitute, Open Approach (ICD-10-PCS; principal; 2020-08-03 07:30)
DX: M16.11 Unilateral primary osteoarthritis, right hip (principal); R00.1 Bradycardia, unspecified
CPT/HCPCS: 36415; 72170; 80048; 85025; 85610; 85730; 86850; 86900; 86901; 87081; 94003; 94150; J2250; U0002